=== PATIENT | female | born 1990 | race Caucasian/White ===

== ENCOUNTER 2024-03-08 15:41 | Emergency (ER) | payer SELFPAY ==
[2024-03-08] MEDS: Ketorolac 30 MG/ML SDV IM ONE (16:43)
[2024-03-08] MEDS: Acetaminophen/HYDROcodone 325-10 MG Tab PO ONE (17:28)
== END 2024-03-08 17:30 | disposition home or self-care (01) ==
LOC: MW.ED 15:41
DX: M54.9 Dorsalgia, unspecified (principal); F17.210 Nicotine dependence, cigarettes, uncomplicated; Z79.899 Other long term (current) drug therapy; Z75.8 Other problems related to medical facilities and other health care
CPT/HCPCS: 96372; 99283; A9270; J1885

== ENCOUNTER 2024-04-25 12:44 | Emergency (ER) | payer SELFPAY ==
[2024-04-25] MEDS: Sodium Chloride 0.9% 1,000 ML IV ONE (13:23)
[2024-04-25] MEDS: Ketorolac 30 MG/ML SDV IVPUSH ONE (13:23)
[2024-04-25] MEDS: Ondansetron 4 MG/2 ML SDV IVPUSH ONE (13:23)
[2024-04-25 13:28] LABS: BASOPHILS ABSOLUTE AUTO 0.03 K/uL (0.00-0.20); BASOPHILS PERCENT AUTO 0.5 % (0.0-1.0); EOSINOPHILS ABSOLUTE AUTO 0.06 K/uL (0.00-0.45); EOSINOPHILS PERCENT AUTO 1.1 % (0.0-6.0); HEMATOCRIT 41.1 % (37.0-47.0); HEMOGLOBIN 14.3 g/dL (12.0-16.0); IMMATURE GRAN ABSOLUTE AUTO 0.01 K/uL (0.00-0.05); IMMATURE GRAN PERCENT AUTO 0.2 % (0.0-0.4); LYMPHOCYTES ABSOLUTE AUTO 1.75 K/uL (1.00-4.80); LYMPHOCYTES PERCENT AUTO 30.6 % (24.0-44.0); MEAN CORPUSCULAR HEMOGLOBIN 28.9 pg (28.0-32.0); MEAN CORPUSCULAR HGB CONC 34.8 g/dL (32.0-36.0); MEAN CORPUSCULAR VOLUME 83.2 fL (83.0-99.0); MEAN PLATELET VOLUME 10.2 fL (9.4-12.3); MONOCYTES ABSOLUTE AUTO 0.35 K/uL (0.00-0.80); MONOCYTES PERCENT AUTO 6.1 % (0.0-8.0); NEUTROPHILS ABSOLUTE AUTO 3.51 K/uL (1.80-7.70); NEUTROPHILS PERCENT AUTO 61.5 % (41.0-71.0); PLATELET COUNT,PLT 162 K/uL (150-400); RED BLOOD CELL COUNT 4.94 M/uL (4.10-5.30); WHITE BLOOD CELL COUNT,WBC 5.71 K/uL (3.9-11.3)
[2024-04-25 13:40] LABS: APPEARANCE,URINE CLEAR; BILIRUBIN,URINE NEGATIVE (NEGATIVE); COLOR,URINE YELLOW; GLUCOSE,URINE NEGATIVE (NEGATIVE); KETONES,URINE NEGATIVE (NEGATIVE); LEUKOCYTE ESTERASE,URINE NEGATIVE (NEGATIVE); NITRITE,URINE NEGATIVE (NEGATIVE); OCCULT BLOOD,URINE NEGATIVE (NEGATIVE); PROTEIN,URINE NEGATIVE (NEGATIVE); UROBILINOGEN,URINE 0.2 EU/dL (<2.0)
[2024-04-25 13:58] LABS: A/G RATIO 1.1 (0.9-1.6); BILIRUBIN TOTAL 0.4 mg/dL (0.2-1.0); CALCIUM 9.6 mg/dL (8.5-10.1); CARBON DIOXIDE,CO2 27.6 mmol/L (21.0-32.0); CREATININE 0.8 mg/dL (0.6-1.0); EST CRCL DRUG DOSING (CG) 97.27 mL/min; POTASSIUM,K 3.8 mmol/L (3.5-5.1); PROTEIN TOTAL,TP 7.7 g/dL (6.4-8.2)
[2024-04-25] MEDS: Alum Hydrox/Mag Hydrox/Simeth 15 ML, Metoclopramide 5 MG, Lidocaine 2% 5 ML PO ONE (14:22)
[2024-04-25] MEDS: Morphine 2 MG/ML SYRINGE IVPUSH ONE (14:23)
== END 2024-04-25 14:48 | disposition home or self-care (01) ==
LOC: MW.ED 12:44
DX: R10.33 Periumbilical pain (principal); Z75.8 Other problems related to medical facilities and other health care
CPT/HCPCS: 36415; 80053; 81003; 83690; 85025; 96361; 96374; 96375; 99284; A9270; J1885; J2270; J2405; J7030

== ENCOUNTER 2024-04-26 01:36 | Emergency (ER) | payer SELFPAY ==
[2024-04-26] MEDS: Ketorolac 30 MG/ML SDV IVPUSH ONE (02:16)
[2024-04-26] MEDS: Ondansetron 4 MG/2 ML SDV IVPUSH ONE (02:16)
[2024-04-26] MEDS: Iopamidol 755 MG/ML 500 ML Multipack Bottle IVPUSH ONE (02:40)
[2024-04-26] MEDS: Acetaminophen/HYDROcodone 325-5 MG Tab PO ONE (03:05)
[2024-04-26] MEDS: Alum Hydrox/Mag Hydrox/Simeth 15 ML, Lidocaine 2% 5 ML PO ONE (03:06)
== END 2024-04-26 03:17 | disposition home or self-care (01) ==
LOC: MW.ED 01:36
DX: R10.84 Generalized abdominal pain (principal)
CPT/HCPCS: 74177; 96374; 96375; 99284; A9270; J1885; J2405; Q9967